=== PATIENT | female | born 1945 | race Caucasian/White ===

== ENCOUNTER 2021-01-22 12:43 | Outpatient (CLI) | payer MEDICARE, OTHER | END 2021-01-22 12:44 | disposition EMS.NT | LOC: EMS 12:43 | DX: Z03.89 Encounter for observation for other suspected diseases and conditions ruled out (principal) ==

== ENCOUNTER 2021-09-14 08:00 | Outpatient (CLI) | payer MEDICARE, OTHER | END 2021-09-14 23:59 | disposition home or self-care (01) | LOC: LAB.N 08:00 | PROVIDERS: ATTEND Family Medicine | DX: N10 Acute pyelonephritis (principal) | CPT/HCPCS: 87086; 87181 ==

== ENCOUNTER 2021-09-17 11:14 | Outpatient (CLI) | payer MEDICARE, OTHER | END 2021-09-17 11:15 | disposition critical access hospital (66) | LOC: EMS 11:14 | DX: M54.9 Dorsalgia, unspecified (principal); R07.89 Other chest pain; R11.0 Nausea; R42 Dizziness and giddiness; R06.4 Hyperventilation | CPT/HCPCS: A0425; A0427 ==

== ENCOUNTER 2021-09-17 11:35 | Inpatient (IN) | payer MEDICARE, OTHER ==
[2021-09-17] MEDS ORDERED: HYDROmorphone 1 MG/ML CARPUJECT IVP STA ×3 (11:58→16:07)
[2021-09-17] MEDS ORDERED: ONDANSETRON 4 MG/2 ML VIAL IVP STA ×2 (12:00→16:07)
[2021-09-17] MEDS ORDERED: SODIUM CHLORIDE 0.9% 1,000 ML IV STA (12:03)
--- NOTE | 2021-09-17 12:03 | ED Physician Documentation ---
History of Present Illness - Stated complaint Stated Complaint: KIDNEY INF - Chief complaint Chief Complaint: Abd Pain - Additonal information Additional information: 76-year-old female comes to the emergency department for evaluation of worsening right sided abdominal pain. States that she was seen at Dr. Rand's office 2 days ago diagnosed with a kidney infection. Patient was started on ciprofloxacin however there has been a miscommunication about the number of pills that she should take so she has only been taking 250 mg twice daily. Patient denies any fevers but has had some nausea. No vomiting. No chest pain or shortness of air. She describes the pain as sharp constant starting in her anterior abdomen and radiating to her back. She states that this is not a kidney stone because she has had those before. She denies any dysuria or hematuria. Patient does have a history of chronic back pain and is also taking Vicodin daily and [facility] In route here she did receive IV fluids as well as 75 mics of fentanyl without relief of symptoms. Review of Systems Constitutional: reports: Myalgias, Fatigue. denies: Fever Eyes: reports: Reviewed and negative Throat: reports: Reviewed and negative Cardiac: reports: Reviewed and negative Respiratory: reports: Reviewed and negative GI: reports: Abdominal Pain, Nausea. denies: Vomiting : denies: Dysuria, Frequency, Hesitancy, Unable to Void Skin: denies: Rash, Lesions Musculoskeletal: reports: Back pain Neurologic: reports: Reviewed and negative Psychiatric: reports: Reviewed and negative PD PAST MEDICAL HISTORY - Allergies Allergies/Adverse Reactions: Allergies Allergy/AdvReac Type Severity Reaction Status Date / Time tramadol AdvReac Intermediate Itching Verified 04/08/21 15:44 PD ED PE EXPANDED - General General: Alert, Well developed/nourished, Anxious, In Pain - Cardiac Cardiac: Regular Rate, Radial strong equal, Pedal strong equal, Cap refill < 2 sec. No: Murmur Present - Respiratory Respiratory: Clear to ausultation carol. No: Distress, Labored - Abdomen Abdomen: Tender to palpation, RUQ - Back Back: Vertebral tenderness, CVA TTP right. No: Soft tissue tenderness - GCS Eye Opening: Spontaneous Motor: Obeys Commands Verbal: Oriented Total: 15 Results - Vitals Vitals: Vital Signs - 24 hr 09/17/21 09/17/21 09/17/21 11:39 12:11 13:53 Temperature 36.2 C L Heart Rate 58 L 63 52 L Respiratory 16 22 22 Rate Blood Pressure 125/79 125/79 112/78 O2 Saturation 97 98 100 09/17/21 09/17/21 09/17/21 14:00 16:00 16:25 Temperature Heart Rate 58 L 66 Respiratory 22 20 20 Rate Blood Pressure 112/78 103/78 O2 Saturation 100 100 100 Oxygen O2 Source Room air - Labs Labs: Laboratory Tests 09/17/21 09/17/21 09/17/21 12:05 12:05 12:37 WBC 6.2 RBC 4.00 L Hgb 12.1 Hct 36.9 L MCV 92.3 MCH 30.3 MCHC 32.8 RDW 14.3 Plt Count 225 MPV 9.8 Neut # (Auto) 4.1 Lymph # (Auto) 1.3 L [place] # (Auto) 0.6 Eos # (Auto) 0.1 Baso # (Auto) 0.0 Absolute Nucleated RBC 0.00 Nucleated RBC % 0.0 Sodium 137 Potassium 3.5 Chloride 102 Carbon Dioxide 24 Anion Gap 11.0 BUN 17 Creatinine 0.8 Estimated GFR (MDRD) 70 L Glucose 124 H Calcium 8.6 Total Bilirubin 2.2 H AST 138 H ALT 201 H Alkaline Phosphatase 185 H Total Protein 7.1 Albumin 3.5 Globulin 3.6 Albumin/Globulin Ratio 1.0 Lipase 22 Urine Color YELLOW Urine Clarity CLEAR Urine pH 6.5 Ur Specific [place] >=1.030 H Urine Protein TRACE Urine Glucose (UA) NEGATIVE Urine Ketones 15 H Urine Occult Blood MODERATE H Urine Nitrite NEGATIVE Urine Bilirubin NEGATIVE Urine Urobilinogen 4 H Ur Leukocyte Esterase MODERATE H Urine RBC 6-10 H Urine WBC >25 H Ur Epithelial Cells MANY Transitional H Ur Squamous Epith Cells MANY Squamous H Urine Bacteria Many H Urine Casts 0-2 Cellular Casts Urine Yeast PRESENT Ur Microscopic Review INDICATED Urine Culture Comments NOT INDICATED - Rads (name of study) abd limited Radiology: Final report received, Discussed with rads (Gallbladder adenomyomatosis. Right inferior pole calyectasis) CT abd Radiology: Final report received (Distention of the gallbladder and mild biliary ductal dilation without evidence of a calcified obstructing stone in the common bile duct or discrete injecting mass. Recommend correlation with lab values and if there is clinical suspicion for Choledocholithiasis further L evaluation may be obtained.) PD MEDICAL DECISION MAKING - ED course Complexity details: reviewed results, re-evaluated patient, considered differential, d/w patient ED course: 76-year-old female presents emergency department for evaluation of persistent right flank right back pain that began 2 to 3 days ago. Seen at an outside walk-in clinic diagnosed with pyelonephritis and started on Cipro. Despite this she has had persistent pain and vomiting. Screening labs show that the patient has some abnormal LFT abnormalities. She also has a persistence of her urinary tract infection. On exam no significant tenderness is elicited in the right upper quadrant. She does have CVA tenderness. A CT of her abdomen shows a distention of the gallbladder with mild biliary ductal dilation without findings of an obstructing stone in the CBD. This is conversed to the abdominal ultrasound which does show adenomyomatosis with a CBD of 6 mm Despite multiple doses of Dilaudid and Zofran the patient continues to writhe in pain in the emergency department. I do have concern that she could have choledocholithiasis. I have asked Dr. José Sandhu to evaluate the patient when he is done with surgery. 1710: Patient has been seen by Dr. José Sandhu or persistent right-sided abdominal pain and vomiting. She did have abnormal LFTs. There is possible concern for choledocholithiasis but he feels it is likely she has passed or is passing a stone. Given the persistence of her symptoms Dr. Sandhu will admit her to the hospital under observation status for further evaluation and management. Likely to be discharged home tomorrow. Departure - Departure Disposition: ED Place in Observation Clinical Impression: Right upper quadrant abdominal pain, Abnormal LFTs
[2021-09-17 12:22] LABS: BASOPHILS % (AUTO) 0.5 %; EOSINOPHILS # (AUTO) 0.1 10^3/uL (0.0-0.7); EOSINOPHILS % (AUTO) 1.5 %; HCT - HEMATOCRIT 36.9 % (37.0-47.0); HGB - HEMOGLOBIN 12.1 g/dL (12.0-16.0); LYMPHOCYTES # (AUTO) 1.3 10^3/uL (1.5-3.5); LYMPHOCYTES % (AUTO) 21.3 %; MEAN CORPUSCULAR HEMOGLOBIN 30.3 pg (27.0-31.0); MEAN CORPUSCULAR HGB CONC 32.8 g/dL (32.0-36.0); MEAN CORPUSCULAR VOLUME 92.3 fL (81.0-99.0); MEAN PLATELET VOLUME 9.8 fL (7.9-10.8); MONOCYTES # (AUTO) 0.6 10^3/uL (0.0-1.0); MONOCYTES % (AUTO) 9.3 %; NEUTROPHILS # (AUTO) 4.1 10^3/uL (1.5-6.6); NEUTROPHILS % (AUTO) 66.9 %; PLT - PLATELET COUNT 225 10^3/uL (130-450); RED CELL DISTRIBUTION WIDTH 14.3 % (12.0-15.0); WHITE BLOOD COUNT 6.2 x10^3/uL (4.8-10.8)
[2021-09-17 12:29] LABS: ALBUMIN 3.5 g/dL (3.2-5.5); BILIRUBIN,TOTAL 2.2 mg/dL (0.2-1.0); CALCIUM 8.6 mg/dL (8.5-10.3); CREATININE 0.8 mg/dL (0.4-1.0); POTASSIUM 3.5 mmol/L (3.5-5.0); TOTAL PROTEIN 7.1 g/dL (6.7-8.2)
[2021-09-17] MEDS ORDERED: IOVERSOL 320 100 ML VIAL IVP ONE ×2 (13:06→19:54)
[2021-09-17 13:10] LABS: GLUCOSE, URINE (UA) NEGATIVE (NEGATIVE); KETONES,URINE (UA) 15 mg/dL (NEGATIVE); LEUKOCYTE ESTERASE, URINE MODERATE (NEGATIVE); NITRITE,URINE NEGATIVE (NEGATIVE); OCCULT BLOOD,URINE MODERATE (NEGATIVE); PH,URINE 6.5 PH (5.0-7.5); PROTEIN,URINE TRACE mg/dL (NEGATIVE); UROBILINOGEN,URINE 4 E.U./dL (NORMAL)
[2021-09-17 13:18] LABS: BILIRUBIN,URINE NEGATIVE (NEGATIVE); CLARITY,URINE CLEAR (CLEAR); ICTOTEST,URINE NEGATIVE
[2021-09-17 13:38] LABS: BACTERIA,URINE Many /HPF (None Seen); EPITHELIAL CELLS,UR MANY Transitional /HPF (<= Few); SQUAMOUS EPITHELIAL CELL,UR MANY Squamous (<= Few); WBC,URINE >25 /HPF (0-5)
[2021-09-17 13:39] LABS: YEAST,URINE PRESENT
--- NOTE | 2021-09-17 15:38 | CT Report ---
PROCEDURE: Abdomen/Pelvis W INDICATIONS: Abdominal pain, acute, nonlocalized TECHNIQUE: After the administration of intravenous contrast, 5 mm thick sections acquired from the diaphragms to the symphysis. 5 mm thick coronal and sagittal reformats were acquired. For radiation dose reducti on, the following was used: automated exposure control, adjustment of mA and/or kV according to michael ent size. COMPARISON: Concurrent limited ultrasound of the abdomen. FINDINGS: Image quality: Excellent. ABDOMEN: Lung bases: There is elevation of the right hemidiaphragm. Mild atelectasis and scarring are demonstr ated in the lung bases. Heart size is normal. Solid organs: Evaluation of the liver demonstrates no focal hepatic mass lesions. Gallbladder is dist ended without calcified gallstones or wall thickening. There is mild intrahepatic and extra hepatic b iliary ductal dilatation, with the common duct measuring up to 0.8 cm. No calcified obstructing stone or discrete mass visualized. The spleen is normal in size. Pancreas enhances normally without peripa ncreatic fat stranding or fluid collections. There is a left adrenal nodule measuring up to 1.8 cm wi th indeterminate attenuation values. Kidneys demonstrate no hydronephrosis. Peritoneum and bowel: There are postsurgical changes consistent with partial gastrectomy with gastroj ejunal bypass. Small bowel loops demonstrate normal wall thickness and caliber. No pericecal inflamm atory changes to suggest appendicitis. There is moderate stool distention within the ascending and tr ansverse colon suggestive of constipation. There is colonic diverticulosis without acute diverticulit is. No free fluid or air. Nodes and vessels: No retroperitoneal or mesenteric adenopathy by size criteria. Aorta and inferior vena cava are normal in size. Miscellaneous: No ventral hernias. PELVIS: Genitourinary: Bladder wall thickness is normal. Miscellaneous: No inguinal hernias or adenopathy. Bones: No suspicious bony lesions. No vertebral body compression fractures. IMPRESSION: 1. Distention of the gallbladder and mild biliary ductal dilatation without evidence of a calcified o bstructing stone in the common duct or a discrete injecting mass. Recommend correlation with lab valu es and if there is clinical suspicion for choledocholithiasis, further evaluation may be obtained [facility] P. 2. Colonic diverticulosis without acute diverticulitis. 3. Moderate stool distention within the descending and transverse colon suggestive of constipation. N o evidence of bowel obstruction. Reviewed by: Son Soto MD on 09/17/2021 3:36 PM PST Approved by: Son Soto MD on 09/17/2021 3:36 PM PST Station ID: [id number]
--- NOTE | 2021-09-17 15:48 | Ultrasound Report ---
PROCEDURE: Abdomen Limited INDICATIONS: RUQ pain; abnormal LFT TECHNIQUE: Real-time focused scanning was performed of the abdomen, with image documentation. COMPARISON: Reference is made to the CT abdomen dated September 17, 2021 FINDINGS: LIVER: The liver is normal in size and contour. No significant abnormality. The portal vein is hairston nt. PANCREAS: Not well seen. Gallbladder and biliary tree: Distention of the gallbladder without wall thickening or pericholecys tic fluid. Common tail artifact are seen, most consistent with adenomyomatosis. The common bile duct measures up to 6 mm. RIGHT KIDNEY: Right inferior pole caliectasis. Measuring 10.5 cm in length. The renal cortex thickn ess measures 1.6 cm. No ascites. IMPRESSION: 1.Gallbladder adenomyomatosis. 2.Right inferior pole caliectasis. Reviewed by: Will Viera MD on 09/17/2021 3:46 PM PST Approved by: Will Viera MD on 09/17/2021 3:46 PM PST Station ID: [id number]
[2021-09-17] MEDS ORDERED: PROCHLORPERAZINE 10 MG/2 ML VIAL IVP STA (16:12)
[2021-09-17] MEDS ORDERED: ZOLPIDEM 5 MG TABLET PO PRN (17:18)
[2021-09-17] MEDS ORDERED: ONDANSETRON ODT 4 MG TABLET TL PRN (17:18)
[2021-09-17] MEDS ORDERED: ACETAMINOPHEN 325 MG TABLET PO PRN (17:18)
[2021-09-17] MEDS ORDERED: SODIUM CHLORIDE FLUSH 0.9% 10 ML SYRINGE IVP PRN (17:18)
[2021-09-17] MEDS ORDERED: PROCHLORPERAZINE 10 MG/2 ML VIAL IVP PRN (17:18)
[2021-09-17] MEDS ORDERED: PANTOPRAZOLE 40 MG TABLET PO STA (17:24)
--- NOTE | 2021-09-17 17:27 | HISTORY & PHYSICAL EXAMINATION ---
Chief Complaint - Chief Complaint Chief Complaint: epigastric pain going to back History of Present Illness - Admitted From Admitted From:: ED - History Obtained From Records Reviewed: yes History obtained from: pt Exam Limitations: none - History of Present Illness HPI Comment/Other: few days of epigastric pain going to the back. she noticed dark urine a few days ago which seems to be improving. She has had similar; however, brief pain on and off for many months. history laparoscopic gastric bypass 10 years ago with 140 lbs weight loss. She states other than chronic low back pain she is otherwise is in good health. Meds/Allgy - Allergies Allergies/Adverse Reactions: Allergies Allergy/AdvReac Type Severity Reaction Status Date / Time tramadol AdvReac Intermediate Itching Verified 04/08/21 15:44 Review of Systems - Other Findings Other Findings: 10 pt ros as above otherwise unremarkable Exam - Vital Signs Reviewed Vital Signs: Yes Vital Signs: Vital Signs x48h Temp Pulse Resp BP Pulse Ox 09/17/21 16:25 20 100 09/17/21 16:00 66 20 103/78 100 09/17/21 14:00 58 L 22 112/78 100 09/17/21 13:53 52 L 22 112/78 100 09/17/21 12:11 63 22 125/79 98 09/17/21 11:39 36.2 C L 58 L 16 125/79 97 - Physical Exam General Appearance: positive: Alert, Mild distress Eyes Bilateral: positive: PERRL, EOMI, No scleral icterus ENT: positive: No signs of dehydration Neck: positive: No JVD Respiratory: positive: No respiratory distress, Breath sounds nml Cardiovascular: positive: Regular rate & rhythm Abdomen: positive: Non-tender, No distention Neurologic/Psychiatric: positive: Oriented x3 Conclusion/Plan - Problem List (1) Right upper quadrant abdominal pain Conclusion/Plan: likely passing a gallstone. gallbladder is distended. plan admit observation. recheck lfts. If pain much improved home tomorrow. if not improving plan lap angel with possible cholangiogram. - Lab Results Fish Bones: 09/17/21 12:05 09/17/21 12:05
[2021-09-17 18:32] LABS: B. PARAPERTUSSIS- RESP PCR PAN NOT DETECTED; B. PERTUSSIS- RESP PCR PANEL NOT DETECTED; C. PNEUMONIAE- RESP PCR PANEL NOT DETECTED; CORONAVIRUS 229E-RESP PCR NOT DETECTED; CORONAVIRUS HKU1-RESP PCR NOT DETECTED; CORONAVIRUS NL63-RESP PCR NOT DETECTED; CORONAVIRUS OC43-RESP PCR NOT DETECTED; HUMAN METAPNEUMOVIRUS NOT DETECTED; INFLUENZA A- RESP PCR PANEL NOT DETECTED; INFLUENZA B - RESP PCR PANEL NOT DETECTED; M. PNEUMONIAE- RESP PCR PANEL NOT DETECTED; PARAINFLUENZA VIRUS 1 NOT DETECTED; PARAINFLUENZA VIRUS 2 NOT DETECTED; PARAINFLUENZA VIRUS 3 NOT DETECTED; PARAINFLUENZA VIRUS 4 NOT DETECTED; RHINOVIRUS/ENTEROVIRUS NOT DETECTED; RSV- RESP PCR PANEL NOT DETECTED; SARS-CoV-2 -RESP PCR PANEL NOT DETECTED
[2021-09-17] MEDS: D5.45NS W/20 MEQ KCL 1,000 ML IV SCH (19:05)
[2021-09-17] MEDS: HYDROmorphone 0.5 MG/0.5 ML SYRINGE IVP PRN ×2 (19:13→21:55)
[2021-09-17] MEDS: ONDANSETRON 4 MG/2 ML VIAL IVP PRN (23:51)
[2021-09-17] MEDS: HYDROcod/ACETAM 5/325 MG TABLET PO PRN (23:51)
[2021-09-18] MEDS: SODIUM CHLORIDE FLUSH 0.9% 10 ML SYRINGE IVP SCH ×3 (00:03→16:56)
[2021-09-18] MEDS: D5.45NS W/20 MEQ KCL 1,000 ML IV SCH ×3 (02:42→17:58)
[2021-09-18] MEDS: HYDROcod/ACETAM 5/325 MG TABLET PO PRN ×2 (03:52→17:58)
[2021-09-18 06:29] LABS: CALCIUM 8.3 mg/dL (8.5-10.3); CREATININE 0.7 mg/dL (0.4-1.0); POTASSIUM 3.8 mmol/L (3.5-5.0); TOTAL PROTEIN 6.1 g/dL (6.7-8.2)
[2021-09-18] MEDS: ONDANSETRON 4 MG/2 ML VIAL IVP PRN ×2 (09:02→17:58)
--- NOTE | 2021-09-18 11:17 | PROVIDER PROGRESS NOTE ---
Subjective - Prog Note Date Prog Note Date: 09/18/21 - Subjective Pt reports feeling: Improved (feeling better. less pain. no nausea. urine still dark) Objective - Vital Signs/Intake & Output Vital Signs: Vital Signs x48h Temp Pulse Resp BP Pulse Ox 09/18/21 08:20 37.1 C 52 L 16 103/52 L 100 Intake & Output: Intake & Output 09/15/21 09/16/21 09/17/21 09/18/21 23:59 23:59 23:59 23:59 Intake Total 1000 1904.166 Output Total 800 Balance 1000 1104.166 - Objective General Appearance: positive: No acute distress, Alert Eyes Bilateral: positive: PERRL, EOMI Neck: positive: No JVD Respiratory: positive: No respiratory distress Abdomen: positive: Non-tender, No distention Neurologic/Psychiatric: positive: Oriented x3 - Lab Results Fish Bones: 09/17/21 12:05 09/18/21 06:00 Other Labs: Lab Results x24hrs 09/18/21 09/17/21 09/17/21 Range/Units 06:00 17:21 12:37 WBC (4.8-10.8) x10^3/uL RBC (4.20-5.40) 10^6/uL Hgb (12.0-16.0) g/dL Hct (37.0-47.0) % MCV (81.0-99.0) fL MCH (27.0-31.0) pg MCHC (32.0-36.0) g/dL RDW (12.0-15.0) % Plt Count (130-450) 10^3/uL MPV (7.9-10.8) fL Neut # (Auto) (1.5-6.6) 10^3/uL Lymph # (Auto) (1.5-3.5) 10^3/uL [place] # (Auto) (0.0-1.0) 10^3/uL Eos # (Auto) (0.0-0.7) 10^3/uL Baso # (Auto) (0.0-0.1) 10^3/uL Absolute Nucleated RBC x10^3/uL Nucleated RBC % /100WBC Sodium 133 L (135-145) mmol/L Potassium 3.8 (3.5-5.0) mmol/L Chloride 100 L (101-111) mmol/L Carbon Dioxide 24 (21-32) mmol/L Anion Gap 9.0 (6-13) BUN 9 (6-20) mg/dL Creatinine 0.7 (0.4-1.0) mg/dL Estimated GFR (MDRD) 82 L (>89) Glucose 142 H (70-100) mg/dL Calcium 8.3 L (8.5-10.3) mg/dL Total Bilirubin 4.0 H (0.2-1.0) mg/dL AST 145 H (10-42) IU/L ALT 175 H (10-60) IU/L Alkaline Phosphatase 222 H (42-121) IU/L Total Protein 6.1 L (6.7-8.2) g/dL Albumin 3.0 L (3.2-5.5) g/dL Globulin 3.1 (2.1-4.2) g/dL Albumin/Globulin Ratio 1.0 (1.0-2.2) Lipase (22-51) U/L Urine Color YELLOW Urine Clarity CLEAR (CLEAR) Urine pH 6.5 (5.0-7.5) PH Ur Specific [place] >=1.030 H (1.002-1.030) Urine Protein TRACE (NEGATIVE) mg/dL Urine Glucose (UA) NEGATIVE (NEGATIVE) mg/dL Urine Ketones 15 H (NEGATIVE) mg/dL Urine Occult Blood MODERATE H (NEGATIVE) Urine Nitrite NEGATIVE (NEGATIVE) Urine Bilirubin NEGATIVE (NEGATIVE) Urine Urobilinogen 4 H (NORMAL) E.U./dL Ur Leukocyte Esterase MODERATE H (NEGATIVE) Urine RBC 6-10 H (0-5) /HPF Urine WBC >25 H (0-5) /HPF Ur Epithelial Cells MANY Transitional H (<= Few) /HPF Ur Squamous Epith Cells MANY Squamous H (<= Few) Urine Bacteria Many H (None Seen) /HPF Urine Casts 0-2 Cellular Casts /LPF Urine Yeast PRESENT Ur Microscopic Review INDICATED Urine Culture Comments NOT INDICATED Nasal Adenovirus (PCR) NOT DETECTED Nasal B. parapertussis DNA (PCR) NOT DETECTED Nasal Coronavir 229E PCR NOT DETECTED Nasal Coronavir HKU1 PCR NOT DETECTED Nasal Coronavir NL63 PCR NOT DETECTED Nasal Coronavir OC43 PCR NOT DETECTED Nasal Enterovir/Rhinovir PCR NOT DETECTED Nasal Influenza B PCR NOT DETECTED Nasal Influenza A PCR NOT DETECTED Nasal Parainfluen 1 PCR NOT DETECTED Nasal Parainfluen 2 PCR NOT DETECTED Nasal Parainfluen 3 PCR NOT DETECTED Nasal Parainfluen 4 PCR NOT DETECTED Nasal RSV (PCR) NOT DETECTED Nasal B.pertussis DNA PCR NOT DETECTED Nasal C.pneumoniae (PCR) NOT DETECTED Jose Human Metapneumo PCR NOT DETECTED Nasal M.pneumoniae (PCR) NOT DETECTED Nasal SARS-CoV-2 (PCR) NOT DETECTED 09/17/21 09/17/21 Range/Units 12:05 12:05 WBC 6.2 (4.8-10.8) x10^3/uL RBC 4.00 L (4.20-5.40) 10^6/uL Hgb 12.1 (12.0-16.0) g/dL Hct 36.9 L (37.0-47.0) % MCV 92.3 (81.0-99.0) fL MCH 30.3 (27.0-31.0) pg MCHC 32.8 (32.0-36.0) g/dL RDW 14.3 (12.0-15.0) % Plt Count 225 (130-450) 10^3/uL MPV 9.8 (7.9-10.8) fL Neut # (Auto) 4.1 (1.5-6.6) 10^3/uL Lymph # (Auto) 1.3 L (1.5-3.5) 10^3/uL [place] # (Auto) 0.6 (0.0-1.0) 10^3/uL Eos # (Auto) 0.1 (0.0-0.7) 10^3/uL Baso # (Auto) 0.0 (0.0-0.1) 10^3/uL Absolute Nucleated RBC 0.00 x10^3/uL Nucleated RBC % 0.0 /100WBC Sodium 137 (135-145) mmol/L Potassium 3.5 (3.5-5.0) mmol/L Chloride 102 (101-111) mmol/L Carbon Dioxide 24 (21-32) mmol/L Anion Gap 11.0 (6-13) BUN 17 (6-20) mg/dL Creatinine 0.8 (0.4-1.0) mg/dL Estimated GFR (MDRD) 70 L (>89) Glucose 124 H (70-100) mg/dL Calcium 8.6 (8.5-10.3) mg/dL Total Bilirubin 2.2 H (0.2-1.0) mg/dL AST 138 H (10-42) IU/L ALT 201 H (10-60) IU/L Alkaline Phosphatase 185 H (42-121) IU/L Total Protein 7.1 (6.7-8.2) g/dL Albumin 3.5 (3.2-5.5) g/dL Globulin 3.6 (2.1-4.2) g/dL Albumin/Globulin Ratio 1.0 (1.0-2.2) Lipase 22 (22-51) U/L Urine Color Urine Clarity (CLEAR) Urine pH (5.0-7.5) PH Ur Specific [place] (1.002-1.030) Urine Protein (NEGATIVE) mg/dL Urine Glucose (UA) (NEGATIVE) mg/dL Urine Ketones (NEGATIVE) mg/dL Urine Occult Blood (NEGATIVE) Urine Nitrite (NEGATIVE) Urine Bilirubin (NEGATIVE) Urine Urobilinogen (NORMAL) E.U./dL Ur Leukocyte Esterase (NEGATIVE) Urine RBC (0-5) /HPF Urine WBC (0-5) /HPF Ur Epithelial Cells (<= Few) /HPF Ur Squamous Epith Cells (<= Few) Urine Bacteria (None Seen) /HPF Urine Casts /LPF Urine Yeast Ur Microscopic Review Urine Culture Comments Nasal Adenovirus (PCR) Nasal B. parapertussis DNA (PCR) Nasal Coronavir 229E PCR Nasal Coronavir HKU1 PCR Nasal Coronavir NL63 PCR Nasal Coronavir OC43 PCR Nasal Enterovir/Rhinovir PCR Nasal Influenza B PCR Nasal Influenza A PCR Nasal Parainfluen 1 PCR Nasal Parainfluen 2 PCR Nasal Parainfluen 3 PCR Nasal Parainfluen 4 PCR Nasal RSV (PCR) Nasal B.pertussis DNA PCR Nasal C.pneumoniae (PCR) Jose Human Metapneumo PCR Nasal M.pneumoniae (PCR) Nasal SARS-CoV-2 (PCR) Assessment/Plan - Problem List (2) Elevated LFTs Impression: She has apparent biliary obstruction, partial without evidence of gallstones, biliary sludge, pancreatic cancer, etc possibility of passsing gallstone material discussed. If she is not improving gallbladder surgery with cholangiogram and possible liver biopsy is an option. if she is improving and liver labs remain elevated outpatient mrcp is an option. she has had a gastric bypass which would make ERCP procedure very difficult. plan diet clears, home today if urine changes back to normal color and doing well with diet. if urine remains dark and she continues to have discomfort plan labs in the am and possible surgery 09/19/2021. Her gallbladder is distended. No inflammation.
[2021-09-18] MEDS: HYDROmorphone 0.5 MG/0.5 ML SYRINGE IVP PRN (13:56)
[2021-09-19] MEDS: SODIUM CHLORIDE FLUSH 0.9% 10 ML SYRINGE IVP SCH ×4 (00:15→23:44)
[2021-09-19] MEDS: D5.45NS W/20 MEQ KCL 1,000 ML IV SCH ×3 (01:44→21:05)
[2021-09-19 07:09] LABS: ALBUMIN 2.8 g/dL (3.2-5.5); ALBUMIN/GLOBULIN RATIO 0.9 (1.0-2.2); BILIRUBIN,TOTAL 5.6 mg/dL (0.2-1.0); CALCIUM 8.4 mg/dL (8.5-10.3); CREATININE 0.5 mg/dL (0.4-1.0); POTASSIUM 3.9 mmol/L (3.5-5.0); TOTAL PROTEIN 5.8 g/dL (6.7-8.2)
--- NOTE | 2021-09-19 07:58 | PHARMACY PROGRESS NOTE ---
- Best Possible Medication History Admit Date and Time: 09/18/211916 Processed by: Pharmacy Medication History completed: Yes Secondary Source(s): Prescription bottles, Insurance records As the person ultimately responsible for medication therapy, providers are able to order a medication from an existing home medication list in [facility] via the "Reconcile Routine" prior to Confirmation of that medication by computer customer support specialist. Such practice is discouraged except when the physician, in their clinical judgment, deems that a medical need exists for a medication without regard to previous use.
[2021-09-19] MEDS: HYDROcod/ACETAM 5/325 MG TABLET PO PRN ×2 (08:45→16:21)
--- NOTE | 2021-09-19 12:16 | PROVIDER PROGRESS NOTE ---
Subjective - Prog Note Date Prog Note Date: 09/19/21 - Subjective Subjective: pain improved; however, still having nausea and not tolerating adequate diet Objective - Vital Signs/Intake & Output Reviewed Vital Signs: Yes Vital Signs: Vital Signs x48h Temp Pulse Resp BP Pulse Ox 09/19/21 08:34 36.2 C L 77 20 118/73 96 Intake & Output: Intake & Output 09/16/21 09/17/21 09/18/21 09/19/21 23:59 23:59 23:59 23:59 Intake Total 1000 2960.416 1968.750 Output Total 2450 1900 Balance 1000 510.416 68.750 - Objective General Appearance: positive: No acute distress, Alert, Other (jaundice now apparent) Eyes Bilateral: positive: PERRL, EOMI, Other (icterus now apparent) Neck: positive: No JVD Respiratory: positive: No respiratory distress, Breath sounds nml Abdomen: positive: Non-tender, No distention Skin: positive: Other (jaundice present) Neurologic/Psychiatric: positive: Oriented x3 - Lab Results Fish Bones: 09/17/21 12:05 09/19/21 06:53 Other Labs: Lab Results x24hrs 09/19/21 Range/Units 06:53 Sodium 133 L (135-145) mmol/L Potassium 3.9 (3.5-5.0) mmol/L Chloride 103 (101-111) mmol/L Carbon Dioxide 22 (21-32) mmol/L Anion Gap 8.0 (6-13) BUN 5 L (6-20) mg/dL Creatinine 0.5 (0.4-1.0) mg/dL Estimated GFR (MDRD) 121 (>89) Glucose 129 H (70-100) mg/dL Calcium 8.4 L (8.5-10.3) mg/dL Total Bilirubin 5.6 H (0.2-1.0) mg/dL AST 72 H (10-42) IU/L ALT 126 H (10-60) IU/L Alkaline Phosphatase 227 H (42-121) IU/L Total Protein 5.8 L (6.7-8.2) g/dL Albumin 2.8 L (3.2-5.5) g/dL Globulin 3.0 (2.1-4.2) g/dL Albumin/Globulin Ratio 0.9 L (1.0-2.2) Assessment/Plan - Problem List (2) Elevated LFTs Impression: she continues to have apparent biliary obstruction of her liver duct which is causing her gallbladder to be distended. no gallbladder inflammation. no signs or symptoms of infection. no history to suggest elevated lfts are related to a hepatitis bilirubin and alk phos continue to go up. history lap gastric bypass. ERCP would be very difficult. lap common bile duct exploration not available on tomas. If her gallbladder were to be removed future access to her liver duct would be even more impaired. cholecystectomy not needed at this time. her nausea and poor intake precludes going home and having further work up as an outpatient. plan continue ivf, iv pain meds as needed recheck liver labs and mrcp tomorrow. If she continues to have nausea she will need to be transferred to a facility which can offer a higher level of care, ie lap common bile duct surgery, transhapatic cholangiogram/ access to liver duct, etc
[2021-09-19] MEDS: ONDANSETRON 4 MG/2 ML VIAL IVP PRN (16:21)
[2021-09-20] MEDS: D5.45NS W/20 MEQ KCL 1,000 ML IV SCH ×3 (04:49→18:37)
[2021-09-20 07:50] LABS: ALBUMIN 2.7 g/dL (3.2-5.5); ALBUMIN/GLOBULIN RATIO 0.8 (1.0-2.2); BILIRUBIN,TOTAL 5.3 mg/dL (0.2-1.0); CALCIUM 8.6 mg/dL (8.5-10.3); CREATININE 0.6 mg/dL (0.4-1.0); POTASSIUM 4.2 mmol/L (3.5-5.0)
[2021-09-20] MEDS: SODIUM CHLORIDE FLUSH 0.9% 10 ML SYRINGE IVP SCH ×2 (10:33→15:45)
--- NOTE | 2021-09-20 10:53 | PROVIDER PROGRESS NOTE ---
Subjective - Prog Note Date Prog Note Date: 09/20/21 - Subjective Pt reports feeling: Improved (pain nearly resolved) Objective - Vital Signs/Intake & Output Reviewed Vital Signs: Yes Vital Signs: Vital Signs x48h Temp Pulse Resp BP Pulse Ox 09/20/21 07:55 36.4 C L 63 16 119/76 98 Intake & Output: Intake & Output 09/17/21 09/18/21 09/19/21 09/20/21 23:59 23:59 23:59 23:59 Intake Total 1000 2960.416 4147.917 966.667 Output Total 2450 4000 1850 Balance 1000 510.416 147.917 -883.333 - Objective General Appearance: positive: No acute distress, Alert, Other (mild jaundice present) Eyes Bilateral: positive: PERRL, EOMI, Other (icterus present) Respiratory: positive: No respiratory distress Abdomen: positive: Non-tender, No distention Neurologic/Psychiatric: positive: Oriented x3 - Lab Results Fish Bones: 09/17/21 12:05 09/20/21 07:30 Other Labs: Lab Results x24hrs 09/20/21 Range/Units 07:30 Sodium 138 (135-145) mmol/L Potassium 4.2 (3.5-5.0) mmol/L Chloride 105 (101-111) mmol/L Carbon Dioxide 25 (21-32) mmol/L Anion Gap 8.0 (6-13) BUN 5 L (6-20) mg/dL Creatinine 0.6 (0.4-1.0) mg/dL Estimated GFR (MDRD) 98 (>89) Glucose 112 H (70-100) mg/dL Calcium 8.6 (8.5-10.3) mg/dL Total Bilirubin 5.3 H (0.2-1.0) mg/dL AST 50 H (10-42) IU/L ALT 97 H (10-60) IU/L Alkaline Phosphatase 268 H (42-121) IU/L Total Protein 6.0 L (6.7-8.2) g/dL Albumin 2.7 L (3.2-5.5) g/dL Globulin 3.3 (2.1-4.2) g/dL Albumin/Globulin Ratio 0.8 L (1.0-2.2) Assessment/Plan - Problem List (2) Elevated LFTs Impression: t bili remains elevated at 5. alk phos still going up. ast and alt back into normal range pain improved; however, she remains on a thin liquid diet. mrcp today and hopefully an etiology for her partial biliary obstruction will be identified. no apparent stones or tumor on ct or ultrasound. if she is feeling well, minimal pain and nausea plan outpatient referral to [facility] surgery if not doing well plan inpatient transfer. hopefully mri will help direct transfer to hepatobiliary or surgical oncology. if still inconclusive and not doing well plan transfer to [facility] medicine for consults and additional work up
--- NOTE | 2021-09-20 14:56 | Discharge Plan ---
Discharge Plan Problem Reviewed?: Yes Disposition: Home, Self Care Condition: Good Diet: Regular (low fat diet, clears and advance to more regular low fat as tolerated) Activity Restrictions: No Restrictions Health Concerns: jaundice Plan of Treatment: referral to [facility] for further work up and or care Care Goals: light mostly liquid low fat diet and slowly increase as tolerated Additional Instructions or Follow Up instructions: call [facility] with any concerns [phone] If you do not hear from [facility] soon, please call our surgery office If you are not doing well please be seen [facility] ED for more expedited care No Smoking: If you smoke, Please STOP! Call for help. Follow-up with: SAMANTHA DEWEY, [Primary Care Provider] -
--- NOTE | 2021-09-20 15:01 | DISCHARGE SUMMARY ---
"Discharge Summary Admit Date: 09/17/21 Discharge Date: 09/20/21 Discharging Provider: lexie toledo md Code Status: Attempt Resuscitation Discharge Facility Name: [facility] - DIAGNOSES Admission Diagnoses: abdominal pain and elevated liver labs. no gallstones or apparent mass/ tumor, or gallbladder inflammation Discharge Diagnoses with Status of Each Condition: pain improved; however, liver lab/ bilirubin remains elevated - HPI History of Present Illness: present with acute right upper quadrant/ epigastric pain going to back consist ent with gallbladder pain. ultrasound and ct show no stones or sludge. mild dilation of liver ducts and gallbladder present without apparent mass or gallbladder inflammation - CONSULTS | PROCEDURES Procedures: pain management mri for further work up. plan referral [facility] surgery for further work up and or treatment - HOSPITAL COURSE Hospital Course: Pain improved while on liquid diet; however, bilirubin remains elevated at 5. - ALLERGIES Allergies/Adverse Reactions: Allergies Allergy/AdvReac Type Severity Reaction Status Date / Time tramadol AdvReac Intermediate Itching Verified 04/08/21 15:44 - MEDICATIONS Home Medications: Ambulatory Orders Medication Instructions Recorded Confirmed HYDROcod/ACETAM 5/325 [[place] 5/325] 1 tablet PO Q6H PRN 09/18/21 09/19/21 Rabeprazole Sodium [Aciphex] 20 mg PO QDAC 09/18/21 09/19/21 - PHYSICAL EXAM AT DISCHARGE General Appearance: positive: Alert, Other (mild jaudice) Eyes Bilateral: positive: PERRL, EOMI, Other (mild icterus) Respiratory: positive: No respiratory distress Abdomen: positive: Non-tender, No distention Neurologic/Psychiatric: positive: Oriented x3 - LABS Result Diagrams: 09/17/21 12:05 09/20/21 07:30 - DIAGNOSTIC IMAGING Diagnostic Imaging Results: Read independently - FOLLOW UP Follow Up: [facility] surgery as needed please call with any concerns [phone] referral to [facility] surgery is to be placed by 09/21/2021 please call if you do not hear from [facility] soon. if you have recurrent pain, nausea and vomiting, please go to the [facility] ED for expedited work up and or care."
[2021-09-20] MEDS ORDERED: GADOBUTROL 10 MMOL/10 ML VIAL ONE (15:36)
[2021-09-20 16:37] VITALS: BP 131/75
--- NOTE | 2021-09-20 17:23 | MRI Report ---
PROCEDURE: MRCP W/WO INDICATIONS: biliary obstruction. no apparent gallstones/mass CONTRAST: IV CONTRAST: Gadavist ml: 7.7 TECHNIQUE: Coronal HASTE, axial 2D FLASH in- and [id number]; axial breath-hold T2 FSE. Oblique coronal and ax ial thin-slice HASTE, radial thick-slab HASTE centered on the extrahepatic bile ducts. Dynamic axial VIBE during the administration of contrast; post-contrast coronal VIBE or 2D FLASH with fat saturati on from the hepatic dome to the iliac crests. Diffusion weighted imaging and ADC also performed. COMPARISON: CT abdomen pelvis 09/17/2021, ultrasound abdomen 09/17/2021 FINDINGS: Image quality: There is motion artifact limiting evaluation. Lung bases: There are small bilateral pleural effusions with associated compressive atelectasis. Hear t size is mildly enlarged. Biliary ducts and pancreas: The gallbladder is distended with a few small dependent gallstones in the region of the gallbladder neck. There is mild gallbladder wall thickening and a small amount of deepali cholecystic fluid. There is intra and extra hepatic biliary ductal dilatation with the common bile du ct measuring up to 1.2 cm. Multiple hypointense filling defects are demonstrated within the common bi le duct including distally in the ampullary consistent with choledocholithiasis. The pancreatic duct is mildly dilated, measuring up to 0.5 cm. No definite peripancreatic edema or fl uid collections to suggest appendicitis. No discrete hepatic mass identified. Solid organs: Liver demonstrates no mass lesion. No adrenal nodules. Spleen is normal in size. Kidne ys demonstrate no hydronephrosis. Nodes and vessels: No retroperitoneal or mesenteric adenopathy by size criteria. Aorta and inferior vena cava are normal in size. Bowel and peritoneum: There are postsurgical changes consistent with history of bypass. Visualized b owel loops are normal in caliber. There is a small amount of intraperitoneal free fluid. Bones and soft tissues: No ventral hernias. Bone marrow is normal in overall signal. IMPRESSION: 1. Cholelithiasis with distention of the gallbladder, mild bladder wall thickening, and small amount of pericholecystic fluid. The findings are nonspecific but may reflect cholecystitis. Recommend corre lation clinically. 2. Cholelithiasis including multiple clustered stones at the ampulla with intra and extra hepatic carol iary ductal dilatation demonstrated. 3. Mild pancreatic duct dilatation without a discrete pancreatic mass or imaging evidence of appendic itis. Recommend correlation with laboratory values. 4. Small bilateral pleural effusions. Findings discussed Dr. Sandhu on 09/20/2021 at 5:15 PM. Reviewed by: Son Soto MD on 09/20/2021 5:21 PM PST Approved by: Son Soto MD on 09/20/2021 5:21 PM PST Station ID: [id number]
[2021-09-21] MEDS ORDERED: GADOBUTROL 7.5 MMOL/7.5 ML VIAL IVP ONE (07:34)
== END 2021-09-20 18:25 | disposition home or self-care (01) | DRG 391 ==
LOC: ED 11:35 → MS2 17:18 → OBSVTOIN 09-18 19:17
PROVIDERS: ADMIT Surgery; ATTEND Surgery
DX: R10.11 Right upper quadrant pain (principal); K83.1 Obstruction of bile duct; R17 Unspecified jaundice; R10.13 Epigastric pain; R79.89 Other specified abnormal findings of blood chemistry; Z98.84 Bariatric surgery status; Z20.822 Contact with and (suspected) exposure to COVID-19; R11.2 Nausea with vomiting, unspecified; K82.8 Other specified diseases of gallbladder; M54.9 Dorsalgia, unspecified; G89.29 Other chronic pain
CPT/HCPCS: 36415; 74177; 74183; 76705; 80053; 81001; 83690; 85025; 87631; 96374; 96375; 96376; 99283; 99285; A9270; A9585; G0378; J1170; Q0162; Q9967; 0202U; 81003; 87086

== ENCOUNTER 2022-07-11 11:34 | Outpatient (CLI) | payer MEDICARE, OTHER ==
[2022-07-11 19:15] VITALS: BP 118/64
--- NOTE | 2022-07-11 19:15 | SLEEP CARE CONSULTATION ---
Information from patient questionnaire entered by Marisa Conklin. I have reviewed and concur with the information entered by Marisa Conklin. This document represents the service I personally performed and the decisions made by me, Tiffanie Longoria MD, [facility]. History of Present Illness Service Date and Time: 07/11/2022 1134 Reason for Visit: New patient Chief Complaint: reports: Fatigue, Other (PCP ASKED PT TO GET SLEEP STUDY ) Usual bedtime: 10-11PM Time it takes to fall asleep: FEW MIN Observed to quit breathing while asleep: No Sleeps alone due to snoring: No Number of times waking at night: 0 Reasons for waking at night: reports: Other (NOISE) Toss, Turn, or Twitch while sleeping: No Recalls having dreams: Yes Usually gets out of bed at: VARRIES Feels refreshed in the morning: No Morning headache: Yes (RESOLVES AFTER SEVERAL EXCEDRINE) Sleepy or fatigued during the day: Yes Ever fallen asleep while driving: No Takes day naps: Yes Dreams during day naps: Yes Prior sleep studies: Yes (15 YRS AGO JANICE) Additional HPI information: I have the pleasure of seeing Ms. Ramirez today regarding the possibility of her having obstructive sleep apnea. As you know, she is a 77-year-old lady who had obstructive sleep apnea-hypopnea and used a CPAP for many years. She had a bariatric surgery 15 years ago and lost 100+ lbs. Since then, she has not used the CPAP. She reports sleeping fine in a recliner (she sleeps in a recliner because of back pain). She does not think she snores. She complains of feeling tired but not sleepy. Her [place] Sleepiness Scale score is 2. She takes Vicodin for back pain. She takes lorazepam 2 3 times a year for panic attack. - Parasomnia Symptoms Ever been unable to move upon waking from sleep: No Walks in sleep: No Talks in sleep: No Ever acted out dreams in sleep: No Ever felt weak in the knees when startled or emotional: No Bothered by creepy, crawly, restless sensations in legs: No Problems with memory or concentration: Yes Subjective Initial [place] Sleepiness Scale score: 3 (07/10/2022) Past Medical History Past Medical History: reports: Arthritis, Anxiety Social History The patient's occupation is a RE. Patient is and lives in [place]. Have you smoked in the past 12 months: No Alcohol use: No Caffeine use: Yes Caffeine amount and frequency: 1/2-10 CUP DAILY Family History Family history of sleep disordered breathing: Yes Family Hx Sleep Apnea: Mother: Sleep apnea - Treated, Father: Snoring, Sleep apnea - Untreated Allergies and Home Medications Known drug allergies: Yes (TRAMADOL) Drug allergies reviewed: Yes Home medication list reviewed: Yes Allergy and home medication list: Allergies tramadol Adverse Reaction (Intermediate, Verified 04/08/21 15:44) Itching Review of Systems Cardiovascular: denies: high blood pressure, palpitations, chest pain, irregular heart rate or pulse, leg or foot swelling, have to sleep sitting up, other Respiratory: denies: shortness of breath, wheeze, sputum production, chronic cough, other Gastrointestinal: reports: vomitting, abdominal pain Neurological: reports: headaches, gait or balance problems Psychiatric: reports: anxiety, depression Ear/Nose/Throat: reports: wisdom teeth removed Endocrine: reports: sluggishness, too hot or cold, unexplained weakness Musculoskeletal: reports: joint pain, neck pain, back pain, muscle pain or cramping Immunologic: reports: rash, itching, allergies to food or environment Physical Exam Vital signs obtained and entered by: MARISA Alejo MA Blood Pressure: 118/64 (LEFT ARM) Cuff size: regular Heart Rate: 86 O2 Saturation: 96 Height: 5 ft 2 in Weight: 135 lb 6.4 oz Body Mass Index: 24.7 BMI Classification: Normal Neck circumference: 16 Mood/affect: Normal HEENT: No craniofacial malformation Nostrils: patent to airflow Turbinates: normal Septum: midline Mouth and throat: normal Soft palate: normal Hard palate: normal Uvula: normal Uvula visualization: 100% Mallampati Class I Tongue: normal in size Tonsils: small Chin and jaw: normal size and position Neck: normal w/o lymphadenopathy or thyromegaly Heart: regular rate and rhythm Lungs: clear bilaterally Extremities: no edema or clubbing Neurologic: intact Impression and Plan IMPRESSION: 1. Obstructive Sleep Apnea-Hypopnea Syndrome, most likely resolved with weight loss. The patient appears to be asymptomatic. She has no comorbid conditions. Therefore, an in-laboratory polysomnography will be perform to confirm the resolution of the sleep-related breathing disorder. Plan: 1. Schedule polysomnography. 2. Return for follow up after the sleep study. Follow up with Sleep Care in: 1-2 months Visit Type: In Office Time Spent with Patient (minutes): 15 Provider Statement: I spent 100% of the Face to Face Visit with the patient with greater than 50% spent counseling the patient and coordination of care.
== END 2022-07-11 11:35 | disposition home or self-care (01) ==
LOC: SC 11:34
PROVIDERS: ATTEND Internal Medicine Pulmonary Disease
DX: G47.33 Obstructive sleep apnea (adult) (pediatric) (principal); Z98.84 Bariatric surgery status
CPT/HCPCS: 99202; G0463; 99212

== ENCOUNTER 2022-07-21 20:32 | Outpatient (CLI) | payer MEDICARE, OTHER | END 2022-07-21 20:33 | disposition home or self-care (01) | LOC: SC 20:32 | PROVIDERS: ATTEND Internal Medicine Pulmonary Disease | DX: G47.33 Obstructive sleep apnea (adult) (pediatric) (principal) | CPT/HCPCS: 95810 ==

== ENCOUNTER 2022-08-22 11:28 | Outpatient (CLI) | payer MEDICARE, OTHER ==
[2022-08-22 19:33] VITALS: BP 124/76
--- NOTE | 2022-08-22 19:33 | SLEEP CARE CONSULTATION ---
Information from patient questionnaire entered by Marisa Conklin. I have reviewed and concur with the information entered by Marisa Conklin. This document represents the service I personally performed and the decisions made by me, Tiffanie Longoria MD, [facility]. History of Present Illness Service Date and Time: 08/22/2022 1128 Initial [place] Sleepiness Scale score: 4 (08/22/22) Additional HPI information: Ms. Ramirez returned for follow up of the sleep study she had on 07/21/2022. The polysomnography showed that the patient had normal sleep efficiency. The sleep architecture was abnormal for sleep fragmentation and reduced amount of time spent in REM and slow wave sleep (N3). Respiratory monitoring showed severe obstructive sleep apnea-hypopnea (AHI = 56.9) associated with frequent arousals, oxyhemoglobin desaturation and mild hypoxia (sosa oxygen saturation of 88%). The patient only slept supine during this study. Snore was moderate to loud in intensity. There was no significant periodic leg movement of sleep. Cardiac rhythm was normal sinus rhythm without significant arrhythmia. No abnormal behavior (parasomnia) observed during the night. The patient was informed of these findings. I explained to her the pathophysiology behind obstructive sleep apnea. We then spent quite a bit of time discussing different treatment options. For mild obstructive sleep apnea, surgery and oral appliance are alternatives to nasal CPAP therapy but in moderate or severe cases, nasal CPAP is the most effective and reliable treatment. After some discussion, she would like to first make sure that she needs to be treated. Sleep Study - Results Type of Sleep Study: Polysomnography (COMPLETED 07/21/2022) Allergies and Home Medications Drug allergies reviewed: Yes Home medication list reviewed: Yes Allergy and home medication list: Allergies tramadol Adverse Reaction (Intermediate, Verified 07/11/22 11:59) Itching Review of Systems Review of systems same as previous: Yes Physical Exam Vital signs obtained and entered by: MARISA Alejo MA Blood Pressure: 124/76 (left arm) Cuff size: regular Heart Rate: 91 O2 Saturation: 96 Height: 5 ft 2 in Weight: 131 lb 12.8 oz Body Mass Index: 24.0 BMI Classification: Normal Impression and Plan IMPRESSION: 1. Obstructive Sleep Apnea-Hypopnea Syndrome, severe, associated with mild hypoxemia and sleep fragmentation. The patient does not think she has obstructive sleep apnea at home because she sleeps in a recliner. I will order a home sleep apnea test (HSAT) to see if that is true. PLAN: 1. Home sleep apnea test (HSAT) 2. Return for follow up after the test. Follow up with Sleep Care in: 1-2 months Plan: HST Visit Type: In Office Time Spent with Patient (minutes): 15 Provider Statement: I spent 100% of the Face to Face Visit with the patient with greater than 50% spent counseling the patient and coordination of care.
== END 2022-08-22 11:29 | disposition home or self-care (01) ==
LOC: SC 11:28
PROVIDERS: ATTEND Internal Medicine Pulmonary Disease
DX: G47.33 Obstructive sleep apnea (adult) (pediatric) (principal)
CPT/HCPCS: 99212; G0463

== ENCOUNTER 2022-09-09 14:36 | Outpatient (CLI) | payer MEDICARE, OTHER | END 2022-09-09 14:37 | disposition home or self-care (01) | LOC: SC 14:36 | PROVIDERS: ATTEND Internal Medicine Pulmonary Disease | DX: G47.33 Obstructive sleep apnea (adult) (pediatric) (principal); R09.02 Hypoxemia | CPT/HCPCS: G0399 ×2; 95806 ==

== ENCOUNTER 2022-10-10 11:11 | Outpatient (CLI) | payer MEDICARE, OTHER ==
[2022-10-10 12:25] VITALS: BP 136/88
--- NOTE | 2022-10-10 12:25 | SLEEP CARE CONSULTATION ---
Information from patient questionnaire entered by Brenda Andujar LPN. I have reviewed and concur with the information entered by Brenda Andujar LPN. This document represents the service I personally performed and the decisions made by me, Tiffanie Longoria MD, [facility]. History of Present Illness Service Date and Time: 10/10/2022 1111 Initial [place] Sleepiness Scale score: 4 Current [place] Sleepiness Scale score: 5 (10/10/2022) Additional HPI information: Ms. Ramirez returned for follow up of the sleep study she had on 09/09/2022. The polysomnography showed that moderate obstructive sleep apnea-hypopnea, with an AHI of 19.7/hr and sosa SaO2 of 86%. During the study, the patient had 179 apneas (179 obstructive, 0 central, 0 mixed) and 5 hypopneas. The longest episode lasted 122.0 seconds. The patient did not sleep supine during this study (she slept sitting in a recliner). Hypoxemia was mild, with the lowest oxygen saturation of 86 % and 12.9 minutes with SaO2 under 90%. Baseline oxygen saturation was normal (Average oxygen saturation was 92%). The patient was informed of these findings. I explained to her that she does have moderate despite sleep sitting up in a recliner. She used a CPAP 12 years ago but quit after she had the bariatric surgery. Her uses a CPAP anxiety / depression gets his equipment from [employer]. Sleep Study - Results Type of Sleep Study: Home sleep study (09/09/22) Year and Where: 09/09/22 Allergies and Home Medications Known drug allergies: Yes (lorazepam) Drug allergies reviewed: Yes Home medication list reviewed: Yes Allergy and home medication list: Allergies lorazepam Allergy (Verified 10/10/22 11:24) tramadol Adverse Reaction (Intermediate, Verified 07/11/22 11:59) Itching Home Medications DULoxetine [Cymbalta] 1 tab PO DAILY 10/10/22 [History Confirmed 10/10/22] Review of Systems Review of systems same as previous: Yes Physical Exam Vital signs obtained and entered by: BRENDA Childress LPN Blood Pressure: 136/88 Cuff size: wrist Heart Rate: 96 O2 Saturation: 97 Height: 5 ft 2 in Weight: 290 lb 2.053 oz Body Mass Index: 53.0 BMI Classification: Morbidly Obese Impression and Plan IMPRESSION: 1. Obstructive Sleep Apnea-Hypopnea Syndrome, moderate, associated with mild hypoxemia. Obviously this is the cause of the patients symptoms of unrefreshed sleep, and excessive daytime sleepiness. As mentioned above, the patient will be started on an autoCPAP set between 4 and 12 cmH2O. Depending on her response and compliance she may be brought back for an overnight CPAP titration study. PLAN: 1. Prescription made for an autoCPAP, heated humidifier, and related supplies. 2. Return for follow up after one month of using the CPAP. Prescriptions: Auto CPAP Follow up with Sleep Care in: 1-2 months Time Spent with Patient (minutes): 15
== END 2022-10-10 11:12 | disposition home or self-care (01) ==
LOC: SC 11:11
PROVIDERS: ATTEND Internal Medicine Pulmonary Disease
DX: G47.33 Obstructive sleep apnea (adult) (pediatric) (principal); E66.01 Morbid (severe) obesity due to excess calories; Z68.43 Body mass index [BMI] 50.0-59.9, adult
CPT/HCPCS: 99212; G0463

== ENCOUNTER 2023-01-03 10:52 | Outpatient (CLI) | payer MEDICARE, OTHER ==
--- NOTE | 2023-01-03 11:34 | Sleep Patient Instructions ---
Sleep Center Visit Summary - Patient Visit Information Reason for Visit: 1st compliance follow up of CPAP therapy - Patient Instructions Additional Instructions: You were here for follow up of CPAP therapy. You will be continued on CPAP therapy with pressure at 6-10 cmH2O. Please let us know if the pressure change is uncomfortable and we can make further adjustments of the pressure. You were fitted with an Cathie View, medium cushion mask. You should follow up with sleep care in 1-2 months. You may contact us sooner for any questions or concerns. - Clinic Information Contact: [facility] [address] [place] [address] [email or web address] T: [phone]
[2023-01-03 11:39] VITALS: BP 116/72
--- NOTE | 2023-01-03 11:39 | SLEEP CARE CONSULTATION ---
Information from patient questionnaire entered by Bernadette Conklin. I have reviewed and concur with the information entered by Bernadette Conklin. This document represents the service I personally performed and the decisions made by me, Jayne Villanueva ARNP. History of Present Illness Service Date and Time: 01/03/2023 1052 Previous diagnosis: Moderate, Obstructive Sleep Apnea-Hypopnea Syndrome AHI: 19.7 (in 09/2022 (56.9 in 07/2022)) Reason for follow up: first compliance Equipment type: CPAP (RESMED Airsense 10, 10/2022 SD CARD) Equipment obtained from: Other ([facility]) Mask style: Nasal Mask brand: [id number] [id number] Backup mask available: No (will keep old mask when replaced) Year and Where: 09/09/22 Type of Sleep Study: Home sleep study (09/09/22) HPI additional information: RIGOBERTO LEMOS was diagnosed to have moderate, AHI 19.7, obstructive sleep apnea-hypopnea syndrome and returned today for CPAP therapy first compliance follow-up. Sleep Study - Results Type of Sleep Study: Home sleep study (09/09/22) Year and Where: 09/09/22 CPAP Compliance Data - Data Reviewed with Patient Average duration of nightly device use: 6 hours 56 minutes Compliance rate %: 86 (46/51 days used) Current pressure setting (cmH2O): 4-12 [median 5.8, avg 8.0, max 9.5] Average residual AHI: 1.6 Central apnea: 0.4 Obstructive apnea: 0.9 Average large leak: 3.2 L/min Subjective Missed days of use due to: reports: travel, other (feel asleep once without it) Patient concerns: reports: mask discomfort, mask leak noise, dry mouth, nose, throat, other (headache). denies: aerophagia, air blowing in eyes, condensation in mask/hose, nasal congestion, epistaxis Observed to snore while using device: No Current pressure setting perceived as: comfortable On therapy, patient: reports: other (not feeling any difference in daytime fatigue and energy) Initial [place] Sleepiness Scale score: 4 Current [place] Sleepiness Scale score: 13 (01/03/23) Allergies and Home Medications Known drug allergies: Yes (as listed) Drug allergies reviewed: Yes Home medication list reviewed: Yes (no changes) Allergy and home medication list: Allergies lorazepam Allergy (Verified 12/30/22 14:34) tramadol Adverse Reaction (Intermediate, Verified 12/30/22 14:34) Itching Review of Systems Review of systems same as previous: Yes (no changes) Physical Exam Vital signs obtained and entered by: BERNADETTE Alejo MA Blood Pressure: 116/72 (LEFT ARM) Cuff size: regular Heart Rate: 77 O2 Saturation: 95 Height: 5 ft 2 in Weight: 136 lb 3.2 oz Body Mass Index: 24.9 BMI Classification: Normal Impression and Plan 1. Obstructive Sleep Apnea-Hypopnea Syndrome, moderate, with good treatment compliance and good apnea control. On CPAP therapy, the patient has better sleep quality and is more rested overall. Patient states her mouth has been coming open according to her . She is also having a dry mouth when she wakes up. She feels she needs a full face mask. I fit her to an Cathie View Gurvinder mask, medium cushion. She will try this mask and we will check on her at her next visit. The patients pressure will be changed to autoCPAP 6-10 cmH20 to reflect pressure being used. Patient advised to contact me if pressure change is uncomfortable so that it can be adjusted. Goals for apnea control discussed. Patient's apnea severity and rationale for treatment to reduce apnea, improve sleep quality and reduce cardiovascular and cerebrovascular events was reviewed. I also reviewed the benefit of consistent device use of CPAP for anxiety. * Change auto CPAP pressure to 6-10 cmH2O * Try full face mask, Cathie View, medium cushion * Notify me if snoring with mask or feeling that the pressure is too much or too little * Call this office if any problems using CPAP * Return for follow up in 1-2 months, or sooner if concerns arise Mask provided: Yes Counseling Topics: Spare mask Visit Type: In Office Time Spent with Patient (minutes): 29 Provider Statement: I spent 100% of the Face to Face Visit with the patient with greater than 50% spent counseling the patient and coordination of care.
== END 2023-01-03 10:53 | disposition home or self-care (01) ==
LOC: SC 10:52
PROVIDERS: ATTEND Nurse Practitioner Family
DX: G47.33 Obstructive sleep apnea (adult) (pediatric) (principal)
CPT/HCPCS: 99213; G0463; 99212

== ENCOUNTER 2023-02-28 11:15 | Outpatient (CLI) | payer MEDICARE, OTHER ==
--- NOTE | 2023-02-28 11:47 | Sleep Patient Instructions ---
Sleep Center Visit Summary - Patient Visit Information Reason for Visit: Two month followup for PAP therapy - Patient Instructions Additional Instructions: You were here for follow up of CPAP therapy. You will be continued on CPAP therapy with pressure at 6-10 cmH2O. You should follow up with sleep care in 1-2 months. You may contact us sooner for any questions or concerns. - Clinic Information Contact: [facility] [address] [place] [id number] [email or web address] T: [phone]
--- NOTE | 2023-02-28 11:52 | SLEEP CARE CONSULTATION ---
Information from patient questionnaire entered by Marisa Conklin. I have reviewed and concur with the information entered by Marisa Conklin. This document represents the service I personally performed and the decisions made by me, Jayne Villanueva ARNP. History of Present Illness Service Date and Time: 02/28/2023 1115 Previous diagnosis: Moderate, Obstructive Sleep Apnea-Hypopnea Syndrome AHI: 19.7 (in 2022) Reason for follow up: other (2 MONTH F/U) Equipment type: CPAP (Resmed Airsense 10, s/u 10/2022; SD CARD NEEDED) Equipment obtained from: Other ([facility], getting supplies) Mask style: Nasal (over the nose) Backup mask available: No (will keep old mask when replaced) Last cushion change: no change yet Year and Where: 09/09/22 Type of Sleep Study: Home sleep study (09/09/22) HPI additional information: RIGOBERTO LEMOS was diagnosed to have moderate, AHI 19.7, obstructive sleep apnea-hypopnea syndrome and returned today for CPAP therapy two month follow-up. Sleep Study - Results Type of Sleep Study: Home sleep study (09/09/22) Year and Where: 09/09/22 CPAP Compliance Data - Data Reviewed with Patient Average duration of nightly device use: 7 hours 17 minutes Compliance rate %: 57 (38/60 days used) Current pressure setting (cmH2O): 6-10 Average residual AHI: 4.4 Central apnea: 1.8 Obstructive apnea: 2 Hypopnea: 0.2 Average large leak: 3.6 L/min Subjective Missed days of use due to: reports: illness (dental surgery and mask sliding/hurting face), travel (went to [place]) Patient concerns: reports: mask discomfort (because of dental surgery pain), dry mouth, nose, throat. denies: aerophagia, air blowing in eyes, mask leak noise, condensation in mask/hose, nasal congestion Observed to snore while using device: No Current pressure setting perceived as: comfortable On therapy, patient: reports: sleeping better, awakening more refreshed, being more awake and alert during the day, more rested overall. denies: drowsiness while driving Initial [place] Sleepiness Scale score: 4 Current [place] Sleepiness Scale score: 9 (02/28/23) Allergies and Home Medications Known drug allergies: Yes (as listed) Drug allergies reviewed: Yes Home medication list reviewed: Yes (Amoxicillin, Ibuprofen/stopped now, Vicidon, soon-Celebrex) Allergy and home medication list: Allergies lorazepam Allergy (Verified 02/27/23 15:13) tramadol Adverse Reaction (Intermediate, Verified 02/27/23 15:13) Itching Review of Systems Review of systems same as previous: No (Dental surgery - implants) Physical Exam Vital signs obtained and entered by: MARISA Alejo MA Blood Pressure: 132/86 (LEFT ARM) Cuff size: regular Heart Rate: 86 O2 Saturation: 98 Height: 5 ft 2 in Weight: 135 lb Body Mass Index: 24.7 BMI Classification: Normal Impression and Plan 1. Obstructive Sleep Apnea-Hypopnea Syndrome, moderate, with fair treatment compliance and good apnea control. On CPAP therapy, the patient has better sleep quality and is more rested overall. Patient states she had some dental surgery to put in implants. The mask she is using is slipping down and causing pain on her lower jaw. She is not using her CPAP until the pain has improved. I fit her with a fullface mask, ResMed AirFit F20, and medium cushion. She feels this is more comfortable and will be able to use it while she is healing over the next couple of months. I will have her come in to recheck compliance and see if we need to change her mask with her DME. Patient's apnea severity and rationale for treatment to reduce apnea, improve sleep quality and reduce cardiovascular and cerebrovascular events was reviewed. I also reviewed the benefit of consistent device use of CPAP for anxiety. * Continue auto CPAP pressure at 6-10 cmH2O * Patient given ResMed AirFit F20 full face mask, medium cushion to try * Notify me if snoring with mask or feeling that the pressure is too much or too little * Attempt to lose weight * Call this office if any problems using CPAP * Return for follow up in 1-2 months, or sooner if concerns arise Mask provided: Yes Counseling Topics: Spare mask, Weight loss health impact Visit Type: In Office Time Spent with Patient (minutes): 27 Provider Statement: I spent 100% of the Face to Face Visit with the patient with greater than 50% spent counseling the patient and coordination of care.
[2023-02-28 12:00] VITALS: BP 132/86
== END 2023-02-28 11:16 | disposition home or self-care (01) ==
LOC: SC 11:15
PROVIDERS: ATTEND Nurse Practitioner Family
DX: G47.33 Obstructive sleep apnea (adult) (pediatric) (principal)
CPT/HCPCS: 99213; G0463; 99212

== ENCOUNTER 2023-04-11 11:20 | Outpatient (CLI) | payer MEDICARE, OTHER ==
--- NOTE | 2023-04-11 11:42 | Sleep Patient Instructions ---
Sleep Center Visit Summary - Patient Visit Information Reason for Visit: 6 WEEK FOLLOWUP FOR PAP THERAPY - Patient Instructions Additional Instructions: You were here for follow up of CPAP therapy. You will be continued on CPAP therapy with pressure at 6-10 cmH2O. You should follow up with sleep care in 3 months. You may contact us sooner for any questions or concerns. - Clinic Information Contact: [facility] [address] [place] [address] [email or web address] T: [phone]
--- NOTE | 2023-04-11 11:45 | SLEEP CARE CONSULTATION ---
Information from patient questionnaire entered by Marisa Conklin. I have reviewed and concur with the information entered by Marisa Conklin. This document represents the service I personally performed and the decisions made by me, Jayne Villanueva ARNP. History of Present Illness Service Date and Time: 04/11/2023 1120 Previous diagnosis: Moderate, Obstructive Sleep Apnea-Hypopnea Syndrome AHI: 19.7 (in 09/2022 (56.9 in 07/2022)) Reason for follow up: other (6 WEEK F/U) Equipment type: CPAP (RESMED Airsense 10, 10/2022 SD CARD) Equipment obtained from: Other ([facility]; getting supplies) Mask style: Nasal Mask brand: [id number] [place] Backup mask available: Yes (other mask) Last cushion change: 1 week Year and Where: 09/09/22 Type of Sleep Study: Home sleep study (09/09/22) HPI additional information: RIGOBERTO LEMOS was diagnosed to have moderate, AHI 19.7, obstructive sleep apnea-hypopnea syndrome and returned today for CPAP therapy six weeks follow-up. Sleep Study - Results Type of Sleep Study: Home sleep study (09/09/22) Year and Where: 09/09/22 CPAP Compliance Data - Data Reviewed with Patient Average duration of nightly device use: 5 hours 33 minutes Compliance rate %: 59 (35/44 days used) Current pressure setting (cmH2O): 6-10 Average residual AHI: 3.9 Central apnea: 1.1 Obstructive apnea: 2.1 Average large leak: 4.8 L/min Subjective Patient concerns: reports: mask discomfort (occasional), mask leak noise (when turning head, not annoying), dry mouth, nose, throat, other (always wakes up with headaches; had prior to CPAP) Observed to snore while using device: No Current pressure setting perceived as: comfortable On therapy, patient: reports: sleeping better, other (still likes to take a nap during the day). denies: drowsiness while driving Initial [place] Sleepiness Scale score: 4 Current [place] Sleepiness Scale score: 9 (04/11/23) Allergies and Home Medications Known drug allergies: Yes (as listed) Drug allergies reviewed: Yes Home medication list reviewed: Yes (no changes) Allergy and home medication list: Allergies lorazepam Allergy (Verified 04/07/23 09:36) tramadol Adverse Reaction (Intermediate, Verified 04/07/23 09:36) Itching Review of Systems Review of systems same as previous: Yes (no changes) Physical Exam Vital signs obtained and entered by: MARISA Alejo MA Blood Pressure: 128/76 (LEFT ARM) Cuff size: regular Heart Rate: 84 O2 Saturation: 95 Height: 5 ft 2 in Weight: 135 lb 12.8 oz Body Mass Index: 24.8 BMI Classification: Normal Impression and Plan 1. Obstructive Sleep Apnea-Hypopnea Syndrome, moderate, with fair treatment compliance and good apnea control. On CPAP therapy, the patient has better sleep quality. She does wear her mask 80% of the time and has been increasing her time in the mask. Her compliance is still just under 70% but it is at 63% for the last 30 days. She is not having any major issues and is comfortable with using the CPAP. She does have significant improvement of her sleep apnea. Patient's apnea severity and rationale for treatment to reduce apnea, improve sleep quality and reduce cardiovascular and cerebrovascular events was reviewed. I also reviewed the benefit of consistent device use of CPAP for anxiety. * Continue auto CPAP pressure at 6-10 cmH2O * Notify me if snoring with mask or feeling that the pressure is too much or too little * Attempt to lose weight * Call this office if any problems using CPAP * Return for follow up in 3 months, or sooner if concerns arise Counseling Topics: Spare mask Visit Type: In Office Time Spent with Patient (minutes): 12 Provider Statement: I spent 100% of the Face to Face Visit with the patient with greater than 50% spent counseling the patient and coordination of care.
[2023-04-11 11:58] VITALS: BP 128/76; O2SAT 95
== END 2023-04-11 11:21 | disposition home or self-care (01) ==
LOC: SC 11:20
PROVIDERS: ATTEND Nurse Practitioner Family
DX: G47.33 Obstructive sleep apnea (adult) (pediatric) (principal)
CPT/HCPCS: 99212; G0463